=== PATIENT | male | born 1955 | race Caucasian/White ===

== ENCOUNTER 2023-10-26 06:03 | Day surgery (SDC) | payer SELFPAY ==
[2023-10-10 11:56] VITALS: BMI 27.7
[2023-10-26] VITALS (7 sets, daily range): BP systolic 94–118; BP diastolic 48–79; PULSE 69–78; RESP 16; TEMP 36.1–36.3; O2SAT 94–98; BMI 27.7
[2023-10-26] MEDS: LACTATED RINGERS 1,000 ML 42 ML IV (07:11)
--- NOTE | 2023-10-26 08:02 | PM.PREOP ---
Pre-operative Note Interval Note History & Physical reviewed/Exam performed by Physician: Yes Changes to H&P: No
[2023-10-26] MEDS: CEFAZOLIN 2 GM/100 ML PREMIX 100 ML IV (08:05)
[2023-10-26] MEDS: TRANEXAMIC ACID 1,000 MG VIAL 1000 MG INJ (08:29)
--- NOTE | 2023-10-26 08:40 | SUR.OPER ---
Lateral on padded OR bed with caruso bag positioner, head on pillow, gel axillary roll in place, bottom leg bent with gel pad under knee to foot, upper leg straight and supported with pillows. Operative arm secured in shoulder positioning suspension device. non-operative arm secured on padded arm board. Safety belt at hip, tape over blanket securing lower legs.
[2023-10-26] MEDS: BUPIVACAINE 0.5% (PF) 30 ML, EPINEPHrine 0.15 MG INJ (08:51)
[2023-10-26] MEDS: EPINEPHrine 1 MG/ML IRR (09:11)
--- NOTE | 2023-10-26 09:31 | P.OP_ITS ---
Operative Date/Time/Diagnoses Date of procedure: 10/26/23 Time of procedure: 09:34 Pre-op diagnosis: Right rotator cuff tear, biceps tendonitis Post-op diagnosis: same Procedure & Clinicians Procedure: 1. Right rotator cuff repair 2. Right biceps tenodesis 3. Subacromial decompression and acromioplasty 4. Extensive debridement right shoulder Same procedure as scheduled: Yes Indications: Indications: Donte Has a history of right shoulder pain. Has had no response thus far to nonoperative treatment. We discussed at length that surgery for a rotator cuff tear is primarily for pain and no guarantees were made regarding strength and range of motion. Patient was again explained the risks, benefits and alternatives to surgery. All questions were answered. The patient wished to proceed. 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 There is degenerative changes noted to the labrum anteriorly and posteriorly Biceps tendon: Partial tears with synovitis and erythema throughout Subscapularis: Intact Inferior capsule: Intact Rotator cuff: The supraspinatus had a complete tear at the footprint Subacromial space: Extensive synovitis Prosthetic devices, grafts, tissues, transplants, or devices: Knotless SwiveLock x5 Estimated Blood Loss (mL): 5 Blood products transfused: none Procedure in detail: The patient was seen preoperatively. Risks and benefits were explained, and my initials were marked on the right shoulder. A block was performed by anesthesia. The patient was brought to the operating room and placed supine on the operating table and underwent smooth induction of general anesthesia. 2 g of Ancef were given intravenously prior to the start of the operation, and 1 g of TXA was also given. The arm was prepped and draped in the standard sterile fashion using chlorhexidine. Appropriate drying time was observed. Before beginning the procedure, a time-out was performed and again my initials were confirmed the correct side. 15 cc of 0.25% Marcaine with epinephrine were injected into the subacromial space prior to start. A standard posterior portal was then established. On entering the glenohumeral joint there was the above-noted cartilage pathology. An anterior portal was established outside in. In the glenohumeral joint, the biceps was noted to be partially torn and erythematous and the subscapularis was intact. The undersurface of the rotator cuff was torn at the footprint and was noted to be c ommunicating. The inferior capsule was noted to be intact. There was some labral degeneration noted both anterior and posterior. Extensive synovitis noted. Due to erythema, partial tears and synovitis of the biceps tendon, the decision was made to go forward with a biceps tenodesis. Using a loop and tack technique, the biceps tendon was captured and then released from its anchor at the labrum. It was then placed into a knotless 4.75 mm self punching anchor adjacent to the subscapularis tendon for a secure biceps tenodesis. It was noted that there was erythema throughout the joint, including the anterior and posterior labrum as well as the biceps anchor, grade 2/Iii chondromalacia of the humeral head and glenoid. For the aforementioned reasons, extensive debridement was performed using a 4.0 mm shaver through the anterior portal of the anterior and posterior labral tissue, the biceps anchor, glenoid bone and humeral frayed cartilage. We then established into the subacromial space and a lateral portal was made. A bursectomy was then performed. The coracoclavicular ligament was minimally released off the anterior acromion and a gentle acromioplasty was performed enough for better visualization and to remove significant spurs. This was done with a 4.0 mm shaver and transformed the acromion from a type 2 acromion into a type 1 acromion. Once bursectomy, acromioplasty was performed we had full visualization of the rotator cuff. It was noted at this time that the patient had complete 1.5 cm tear of the supraspinatus. We then freshened up the footprint with a shaver and debrided the cuff tear edges. Two medial row Anchors were placed. I then passed sequentially from anterior to posterior. 2 lateral row trans osseous equivalent anchors were placed creating a secure speed bridge repair. Final arthroscopic pictures were obtained demonstrating a secure repair. The wounds were closed with 3-0 Monocryl and dressed with Xeroform, 4x4s, ABDs and they were placed into a sling. Patient was woken from anesthesia and transported to recovery unit without any complications. Assisting participation: This operation could not have been safely performed (without compromising the technical results or length of the procedure) without the assistance of a skilled operating room surgical technician. The operating room surgical technician was medically necessary for proper positioning, retraction and manipulation of instruments, proper exposure, graft prep, and manipulation of tissue. Complications: none Post-operative Condition: stable Disposition: PACU Plan for aftercare: Postoperatively patient will be nonweightbearing to the operative extremity. Must remain in a sling for 6 weeks with no active range of motion. Okay for dressings to come off in 3 days, take a shower with warm soap and water and then placed Band-Aids over the wounds. After a total of 5 days from surgery all dressings may come off. Keep follow-up appointment in 2 weeks.
[2023-10-26] MEDS: ALBUTEROL/IPRATROPIUM 3 ML AMPUL INH (09:51)
[2023-10-26] MEDS: OXYCODONE IR 5 MG TABLET PO ×2 (10:00→10:49)
--- NOTE | 2023-10-26 11:03 | SUR.PHASEII ---
IS sent home - 2500cc's inhalations
== END 2023-10-26 10:50 | disposition home or self-care (01) ==
PROVIDERS: Family Provider Family Medicine; PCP Family Medicine; Referring Provider Orthopaedic Surgery; Visit Provider Orthopaedic Surgery
PROC: (CPT 29827; principal; 2023-10-26 07:45)
DX: S46.001A Unspecified injury of muscle(s) and tendon(s) of the rotator cuff of right shoulder, initial encounter (principal); M75.21 Bicipital tendinitis, right shoulder; M25.811 Other specified joint disorders, right shoulder; G89.18 Other acute postprocedural pain; M94.211 Chondromalacia, right shoulder; M65.811 Other synovitis and tenosynovitis, right shoulder
CPT/HCPCS: 29827; 29826; 29823; 29828; 64415; C1776; J0171; J0690; J2405; J2704; J3010; J3490